=== PATIENT | female | born 1995 | race African-American/Black ===

== ENCOUNTER 2017-08-23 02:32 | Inpatient (IN) ==
[2017-08-23] MEDS: LACTATED RINGERS 1,000 ML IV SCH ×2 (03:44→10:09)
[2017-08-23] MEDS ORDERED: BUTORPHANOL 2 MG/ML VIAL IV PRN (03:51)
[2017-08-23] MEDS ORDERED: ACETAMINOPHEN 325 MG TABLET PO PRN (03:51)
[2017-08-23] MEDS ORDERED: ONDANSETRON 4 MG/2 ML VIAL IV PRN (03:51)
[2017-08-23] MEDS ORDERED: MEPERIDINE 50 MG/1 ML VIAL IV PRN (03:51)
[2017-08-23] MEDS ORDERED: CLINDAMYCIN INJ 900 MG in PREMIX 1 EACH IV SCH (04:00)
[2017-08-23 04:30] LABS: Basophils % 0.2 % (0.0-0.8); Eosinophils # 0.1 10*3/uL (0.0-0.87); Eosinophils % 0.8 % (0.00-10.9); Hematocrit 26.8 VOL% (35.7-47.0); Hemoglobin 8.3 GM/DL (12.0-16.0); Immature Granulocytes % 0.5 %; Immature Granulocytes Absolute 0.03 #; Lymphocytes # 1.9 10*3/uL (1.4-4.0); Lymphocytes % 31.4 % (21.3-54.2); Mean Corpuscular Hemoglobin 26 PG (27-34); Mean Corpuscular Volume 82.2 FL (87-102); Mean Platelet Volume 9.7 FL (9.6-12.0); Monocytes # 0.6 10*3/uL (0.11-0.8); Monocytes % 9.6 % (1.7-12.7); NRBC # 0.02 10*3/uL; Neutrophils # 3.4 10*3/uL (1.4-7.4); Neutrophils % 57.5 % (38.7-73.9); Platelet Count 204 T/CUMM (130-400); Red Blood Count 3.26 MC/CUMM (3.8-5.5); Red Cell Distribution Width 14.7 % (9.3-17.3)
[2017-08-23 05:38] LABS: Albumin 2.4 G/DL (3.4-5.0); Bilirubin,Total 0.7 MG/DL (0.2-1.0); Calcium 8.2 MG/DL (8.5-10.1); Osmolality,Calculated 273.4 MOS/KG (273-304); Potassium 3.5 MMOL/L (3.5-5.1); Total Protein 5.9 G/DL (6.4-8.3)
[2017-08-23] MEDS ORDERED: OXYTOCIN/LR 20 UNIT/1,000 ML BAG IV SCH (06:00)
[2017-08-23 06:31] LABS: HIV Antigen/Antibody Result Nonreactive (Nonreactive); Hepatitis B Surface Ag Quant 0.29 Index; Hepatitis B Surface Ag Result Negative (Negative); Rubella Antibody IgG 41.5 IU/ML
[2017-08-23] MEDS ORDERED: diphenhydrAMINE 50 MG/1 ML VIAL IV PRN ×2 (09:37)
[2017-08-23] MEDS ORDERED: CITRIC ACID/SODIUM CITRATE 30 ML UDCUP PO ONE (09:37)
[2017-08-23] MEDS ORDERED: FAMOTIDINE 20 MG/2 ML VIAL IV ONE (09:37)
[2017-08-23] MEDS ORDERED: ePHEDrine 50 MG/ML AMP IV PRN (09:37)
[2017-08-23] MEDS ORDERED: ONDANSETRON 4 MG/2 ML VIAL IV ONE (09:37)
[2017-08-23] MEDS ORDERED: PROMETHAZINE 25 MG/1 ML VIAL IM ONE (09:37)
[2017-08-23] MEDS ORDERED: LACTATED RINGERS 1,000 ML IV ONE (09:37)
[2017-08-23] MEDS ORDERED: hydrOXYzine HCL 25 MG/1 ML VIAL IM PRN (09:37)
[2017-08-23] MEDS ORDERED: fentaNYL 2 MCG/ROPIV 0.2% EPID 150 ML EPIDURAL SCH (10:00)
[2017-08-23 13:49] LABS: Apearance,Urine CLEAR (Clear); Bacteria,Urine Occasional /HPF (Few); Bilirubin,Urine Negative (Negative); Blood, Urine Negative (Negative); Glucose,Urine (UA) Negative (Negative); Ketones,Urine Negative (Negative); Mucus,Urine Occasional /LPF (Occasional); Nitrite,Urine Negative (Negative); Protein,Urine Negative; RBC,Urine 1 /HPF (0-4); Squamous Epithelial Cell,Urine Occasional /HPF (0-10); Urine Color Straw (Yellow); Urine Specific Gravity 1.005 (1.001-1.035); Urine Urobilinogen < 2.0 EU/DL (0.2-1.0); WBC,Urine 1 /HPF (0-6)
[2017-08-23] MEDS ORDERED: oxyCODONE/ACETAMINOPHEN 5-325 MG TABLET PO PRN ×2 (16:48)
[2017-08-23] MEDS ORDERED: RHO(D) IMMUNE GLOBULIN 300 MCG SYRINGE IM ONE (16:48)
[2017-08-23] MEDS ORDERED: HYDROCORTISONE 2.5% RECTAL CREAM 30 GM TUBE TOP PRN (16:48)
[2017-08-23] MEDS ORDERED: LANOLIN 50% CREAM 0.3 OZ TUBE TOP PRN (16:48)
[2017-08-23] MEDS ORDERED: BENZOCAINE 20%/MENTHOL 0.5% SPRAY 56 GM CAN TOP PRN (16:48)
[2017-08-23] MEDS ORDERED: WITCH HAZEL PADS 100/JAR TOP PRN (16:48)
[2017-08-23] MEDS ORDERED: MEASLES/MUMPS/RUBELLA VACCINE 0.5 ML VIAL SUBCUT ONE (16:48)
[2017-08-23] MEDS ORDERED: DIPH/TET/ACEL PERT BOOSTER VACCINE 0.5 ML VIAL IM ONE (16:48)
[2017-08-23] MEDS ORDERED: OXYTOCIN/LR 20 UNIT/1,000 ML BAG IV ONE (16:48)
[2017-08-23] MEDS ORDERED: BISACODYL 10 MG SUPP RECTAL PRN (16:48)
[2017-08-23] MEDS: FERROUS SULFATE 325 MG TABLET PO SCH (21:08)
[2017-08-23] MEDS: DOCUSATE SODIUM 100 MG CAPSULE PO SCH (21:08)
[2017-08-23] MEDS: IBUPROFEN 800 MG TABLET PO PRN (22:12)
[2017-08-24 03:39] LABS: Basophils % 0.2 % (0.0-0.8); Eosinophils # 0.1 10*3/uL (0.0-0.87); Eosinophils % 0.7 % (0.00-10.9); Hematocrit 25.6 VOL% (35.7-47.0); Immature Granulocytes % 0.5 %; Immature Granulocytes Absolute 0.05 #; Lymphocytes # 1.8 10*3/uL (1.4-4.0); Lymphocytes % 17.6 % (21.3-54.2); Mean Corpuscular HGB Conc 31.3 GM/DL (32-36); Mean Corpuscular Hemoglobin 25 PG (27-34); Mean Corpuscular Volume 80.3 FL (87-102); Mean Platelet Volume 9.8 FL (9.6-12.0); Monocytes # 0.8 10*3/uL (0.11-0.8); Monocytes % 7.9 % (1.7-12.7); NRBC # 0.02 10*3/uL; Neutrophils # 7.5 10*3/uL (1.4-7.4); Neutrophils % 73.1 % (38.7-73.9); Platelet Count 180 T/CUMM (130-400); Red Blood Count 3.19 MC/CUMM (3.8-5.5); Red Cell Distribution Width 14.6 % (9.3-17.3); White Blood Count 10.3 T/CUMM (4-12)
[2017-08-24] MEDS: FERROUS SULFATE 325 MG TABLET PO SCH ×3 (08:05→21:24)
[2017-08-24] MEDS: IBUPROFEN 800 MG TABLET PO PRN ×2 (08:05→19:55)
[2017-08-24] MEDS: DOCUSATE SODIUM 100 MG CAPSULE PO SCH ×3 (08:05→21:23)
[2017-08-25] MEDS: IBUPROFEN 800 MG TABLET PO PRN (06:56)
[2017-08-25 07:40] VITALS: BP 124/98
[2017-08-25] MEDS: FERROUS SULFATE 325 MG TABLET PO SCH (08:50)
[2017-08-25] MEDS: DOCUSATE SODIUM 100 MG CAPSULE PO SCH (08:50)
[2017-08-25] MEDS ORDERED: DIPH/TET/ACEL PERT BOOSTER VACCINE 0.5 ML VIAL IM ONE (09:10)
== END 2017-08-25 11:50 | disposition home or self-care (01) | DRG 560 ==
LOC: N.LDOUT 02:32 → N.LD 02:33 → N.OB 18:55
PROVIDERS: ADMIT Obstetrics & Gynecology; ATTEND Obstetrics & Gynecology